=== PATIENT | male | born 1955 | race Caucasian/White ===

== ENCOUNTER → 2016-08-31 | Outpatient (CLI) | payer OTHER ==
--- NOTE | 2016-08-31 12:08 | RAD ---
Lumbar spine, 3 views, 08/31/2016: History: Back and leg pain The lumbar vertebral heights are well-maintained. No fracture or dislocation is evident. The intervertebral disc spaces are well preserved. There are moderate scattered marginal spurs. There are mild degenerative changes involving the facet joints in the lower lumbar spine. Aortoiliac calcific plaquing is present. IMPRESSION: 1. Mild to moderate degenerative change. 2. No acute bony abnormality is detected.
== END | disposition home or self-care (01) ==
LOC: RAD 11:20
PROVIDERS: ATTEND Physical Medicine & Rehabilitation
DX: M51.36 Other intervertebral disc degeneration, lumbar region (principal)
CPT/HCPCS: 72100

== ENCOUNTER → 2017-04-10 | Outpatient (CLI) | payer OTHER ==
[~2017-04-10] MED LIST: CALC200T3 PO; INSU100I13 SQ; INSU300I SQ; METF-620 PO; OXYC-327 PO
--- NOTE | 2017-04-10 15:45 | EKG ---
[facility] [address] [place] [address] Test Date: 2017-04-10 Test Time: 15:44:25 Pat Name: CELINE MARTINEZ Department: Room: Gender: M Carcass Trimmer: LILIA : 1955 Requested By: XIMENA FREEMAN Order Number: [id number] Reading MD: Robinson Long Measurements Intervals [place] Rate: 74 P: 147 DE: 154 QRS: -156 QRSD: 78 T: 171 QT: 370 QTc: 411 Interpretive Statements SINUS RHYTHM LIMB LEAD MISPLACEMENT Electronically Signed On 04-11-2017 7:09:32 CDT by Robinson Long
[2017-04-10 15:53] LABS: BASO # 0.1 x10^3/uL (0.0-0.2); BASO % 1 % (0-3); EOS % 5 % (0-3); HEMOGLOBIN 15.1 g/dL (13.0-17.5); LYMPH # 2.6 x10^3/uL (1.0-4.8); LYMPH % 29 % (24-48); MEAN CORPUSCULAR HEMOGLOBIN 30 pg (25-35); MEAN CORPUSCULAR HGB CONC 34 g/dL (31-37); MEAN CORPUSCULAR VOLUME 89 fL (79-100); MONO % 10 % (0-9); NEUT % 54 % (31-73); PLATELET COUNT 250 x10^3/uL (140-400); RED BLOOD COUNT 5.08 x10^6/uL (4.30-5.70); RED CELL DISTRIBUTION WIDTH 14.2 % (11.5-14.5); WHITE BLOOD COUNT 8.9 x10^3/uL (4.0-11.0)
[2017-04-10 16:11] LABS: ALBUMIN 3.3 g/dL (3.4-5.0); ALBUMIN/GLOBULIN RATIO 0.8 (1.0-1.7); CALCIUM 9.3 mg/dL (8.5-10.1); GFR 76.5; POTASSIUM 4.1 mmol/L (3.5-5.1); TOTAL BILIRUBIN 0.2 mg/dL (0.2-1.0); TOTAL PROTEIN 7.6 g/dL (6.4-8.2)
[2017-04-10 16:16] LABS: PROTHROMBIN TIME PATIENT 12.3 SEC (11.7-14.0)
== END | disposition home or self-care (01) ==
LOC: SURGPAT 13:46
PROVIDERS: ATTEND Neurological Surgery
DX: I10 Essential (primary) hypertension (principal); E11.8 Type 2 diabetes mellitus with unspecified complications; M48.06 Spinal stenosis, lumbar region
CPT/HCPCS: 36415; 80053; 83036; 85025; 85610; 85730; 87641; 93005

== ENCOUNTER → 2017-04-18 | Day surgery (SDC) | payer OTHER ==
[~2017-04-18] MED LIST changes: +BACITRACIN 50,000 UNIT in IV NORMAL SALINE 1000ML BAG 1,000 ML IRR ONE; +BUPIVACAINE 0.5% 50 ML VIAL. ONE; +DEXAMETHASONE SOD PHOS 20 MG/5 ML VIAL. ONE; +DOCU-150 PO; +GELATIN SPONGE SIZE 100. ONE; +GLYCOPYRROLATE 1 MG/5 ML VIAL. ONE; +HYDROmorphone 2 MG/ML VIAL IV PRN; +ISOFLURANE > 120 MINUTES. IH ONE; +IV RINGERS,LACTATED 1000ML 1,000 ML IV SCH; +LIDOCAINE 1% 1 ML SYRINGE. ID PRN; +LIDOCAINE 1%/EPI 1:100,000 20 ML VIAL. ONE; +LIDOCAINE 2% PF Vial for OR 5 ML VIAL. ONE; +METH-38 PO; +MORPHINE SULFATE 2 MG/ML DISP.SYRIN. IV PRN; +NEOSTIGMINE 10 MG/10 ML VIAL. ONE; +NEOSTIGMINE METHYLSULFATE 5 MG/5 ML SYRINGE. ONE; +ONDANSETRON PF 4 MG/2 ML VIAL. IV PRN; +ONDANSETRON PF 4 MG/2 ML VIAL. ONE; +OXYC-328 PO; +PROCHLORPERAZINE 10 MG/2 ML VIAL. IV PRN; +PROPOFOL 20 ML IV ONE; +PROPOFOL 50 ML IV ONE; +REMIFENTANIL 2 MG VIAL. IV ONE; +ROCURONIUM 100 MG/10 ML VIAL. ONE; +SUCCINYLCHOLINE 200 MG/10 ML VIAL. ONE; +THROMBIN TOPICAL 20,000 UNIT SPRAY.SYRN KIT TP ONE; +VANCOMYCIN 1GM IVPB FOR OMNI 250 ML IV PRN; +VANCOMYCIN 1GM IVPB FOR OMNI 250 ML ONE; +ePHEDrine PF IN SALINE 50 MG/5 ML DISP.SYRIN IV ONE; +fentaNYL PF VIAL 100 MCG/2 ML VIAL IV PRN; +fentaNYL PF VIAL 100 MCG/2 ML VIAL ONE; +oxyCODONE/APAP 10/325 1 TAB TABLET ONE; +oxyCODONE/APAP 10/325 1 TAB TABLET PO ONE
--- NOTE | 2017-04-18 11:32 | PDOC ---
BRIEF OPERATIVE NOTE Date: Apr 18, 2017 Pre-Op Diagnosis lumbar stenosis, lumbar radiculopathy, lumbar spondylosis, gait disturbance Post-Op Diagnosis same Procedure Performed bilateral laminectomy L4-5 Surgeon Tian Residential Sales Manager none Anesthesia Type: General Blood Loss 25mL Specimens Obtained decompression Findings severe stenosis L4-5 due to degenerative changes, neuromonitoring remained at least baseline throughout the procedure with some reported improvement after decompression Complications none apparent XIMENA FREEMAN MD Apr 18, 2017 11:32
[2017-04-18] MEDS: fentaNYL PF VIAL 100 MCG/2 ML VIAL IV PRN ×2 (11:35→11:45)
--- NOTE | 2017-04-18 11:36 | DISCH ---
DISCHARGE INSTRUCTIONS Condition on Discharge Condition on Discharge: Stable Activity After Discharge Activity Instructions for Disc: Avoid exertion, Progressive ambulation Lifting Instructions after Dis: No heavy lifting, No pulling or pushing, Do not lift >10 pounds, Add. restrict see below (no strenuous activity; no excess bending or twisting) Driving Instructions after Dis: No driving for 2 weeks Wound Incision Care Wound/Incision Care: Ice to area for comfort, Keep wound/cast CDI, Other, see below (may remove dressing day 3 after surgery, may change if saturates dressing ; keep incision clean and dry; do not soak, scrub, submerge incision) Contacting the after DC Call your doctor for: Concerns you may have Follow-Up Follow up with: Dr. Freeman in two weeks [phone] XIMENA FREEMAN MD Apr 18, 2017 11:36
[2017-04-18 11:58] VITALS: BP 125/84
--- NOTE | 2017-04-18 13:48 | OP ---
DATE OF SURGERY: 04/18/2017 PREOPERATIVE DIAGNOSES: 1. Lumbar stenosis. 2. Lumbar spondylosis. 3. Lumbar radiculopathy. 4. Gait disturbance. POSTOPERATIVE DIAGNOSES: 1. Lumbar stenosis. 2. Lumbar spondylosis. 3. Lumbar radiculopathy. 4. Gait disturbance. PROCEDURE: Bilateral laminectomy at lumbar 4 and lumbar 5. ANESTHESIA: General. COMPLICATIONS: None intraprocedurally. INDICATIONS FOR THE PROCEDURE: The patient is a 61-year-old gentleman with significant radiating bilateral lower extremity pain that has been present for a couple of years with increased gait disturbance. It has been refractory to nonsurgical treatment. He was found to have severe stenosis at lumbar 4-5 due to degenerative changes. Please refer to the patient chart for additional detail. DESCRIPTION OF PROCEDURE: After informed consent was obtained, the patient was brought into the operating room. He was placed under general anesthesia and was placed in the prone position on the Zack table. All pressure points were checked and padded appropriately. Fluoroscopy was utilized to localize an appropriate incision location and the lumbar region was prepped and draped in the usual sterile fashion. A vertical incision centered over the region of lumbar 4 and lumbar 5 was made with 10 blade scalpel. Monopolar electrocautery was utilized to dissect the avascular midline to the spinous processes of lumbar 4 and lumbar 5 and bilaterally across the lamina at this location. Level was verified with fluoroscopy prior to the initiation of decompression. Bilateral laminectomies were performed across the junction of lumbar 4 and lumbar 5. A Kerrison rongeur was utilized to remove bone from the underlying ligament. Ligament was gently dissected free from the thecal sac with a Pierron and gently removed with a Kerrison rongeur. The lateral recesses were decompressed bilaterally with a Kerrison rongeur. Upon completion of this, the thecal sac was noted to be very well decompressed. This was verified with direct visualization as well as gentle palpation with a Pierron and a Contreras ball. It was also noted that neuromonitoring potentials were at least baseline and were reported to be possibly slightly improved upon completion of decompression. Once the bilateral laminectomies were complete, fluoroscopy was utilized to verify that the laminectomies were also appropriately cephalad and caudal relative to the stenotic region on prior imaging. Pristine hemostasis was achieved with FloSeal, irrigation, cottonoids, and some use of bipolar electrocautery. The wound was generously irrigated with antibiotic irrigation prior to the final closure. The muscles and fascia were then reapproximated with 2-0 Vicryl in a simple interrupted fashion. Subcutaneous tissues were reapproximated with 2-0 Vicryl in interrupted inverted fashion. Skin was reapproximated with 4-0 Vicryl in a running subcuticular fashion. Mastisol and Steri-Strips were applied. Wound was dressed with Telfa, 4 x 4s and Tegaderm. At the end of procedure, all needle and sponge counts were correct x 2. The patient was extubated in the operating room and taken to recovery in stable condition. There were no intraprocedural complications apparent. XIMENA FREEMAN MD DR: YOSVANY/sachi JOB#: [id number] / [id number] LIZZ
== END | disposition home or self-care (01) ==
LOC: SURG 06:59
PROVIDERS: ATTEND Neurological Surgery
DX: M48.06 Spinal stenosis, lumbar region (principal); M47.26 Other spondylosis with radiculopathy, lumbar region; K21.9 Gastro-esophageal reflux disease without esophagitis; M17.11 Unilateral primary osteoarthritis, right knee; M19.011 Primary osteoarthritis, right shoulder; E11.9 Type 2 diabetes mellitus without complications; F17.200 Nicotine dependence, unspecified, uncomplicated; Z86.69 Personal history of other diseases of the nervous system and sense organs; Z72.0 Tobacco use; Z87.39 Personal history of other diseases of the musculoskeletal system and connective tissue; Z88.0 Allergy status to penicillin
CPT/HCPCS: 63030; 76000; 82962; J0330; J1100; J2405; J2704; J2710; J3010; J3370; J3490; J7030; J2001